=== PATIENT | male | born 1970 | race African-American/Black ===

== ENCOUNTER → 2019-03-11 12:16 | Outpatient (CLI) | payer MEDICARE ==
[2014-02-11 15:11] VITALS: BMI 27.6
[~2019-03-11 12:16] MED LIST: CATAPRES0.1 MG PO; IMODIUM2 MG PO; LEVAQUIN250 MG PO; MELATONIN 10 M1 EACH PO; NORVASC5 MG PO; PHOSLO667 MG PO; PRILOSEC20 MG PO; RENVELA800 MG PO; SENSIPAR60 MG PO; THORAZINE25 MG PO; TOPROL XL100 MG PO; TUMS500 MG PO
== END | disposition home or self-care (01) ==
LOC: D.HCCECHO 12:16
PROVIDERS: ATTEND Internal Medicine Cardiovascular Disease
DX: I34.0 Nonrheumatic mitral (valve) insufficiency (principal)